=== PATIENT | male | born 1980 | race Two or more races ===

== ENCOUNTER 2023-02-10 17:17 | Emergency (ER) | payer OTHER ==
[2023-02-10 17:32] VITALS: BP 133/84
--- NOTE | 2023-02-10 17:58 | XRAY Report ---
PROCEDURE: Wrist 4 View LT INDICATIONS: Trauma TECHNIQUE: 4 views of the wrist were acquired. COMPARISON: Correlation is made with the accompanying elbow plain films, 02/10/2023 FINDINGS: Bones: No fractures or dislocations. No suspicious bony lesions. Scaphoid view: Suboptimally positioned, yet no fracture is seen. Soft tissues: No suspicious soft tissue calcifications. IMPRESSION: No displaced fractures are seen on these plain films. If there is snuffbox tenderness (or other clinical concern for a fracture not seen on these images) p lease consider a dedicated CT study or a short-term follow-up plain film series, following splinting. Reviewed by: Rob Orellana MD on 02/10/2023 4:57 PM [facility]IS Approved by: Rob Orellana MD on 02/10/2023 4:57 PM [facility]IS Station ID: [id number]
--- NOTE | 2023-02-10 17:59 | XRAY Report ---
PROCEDURE: Elbow 3 View LT INDICATIONS: Trauma TECHNIQUE: 3 views of the elbow were acquired. COMPARISON: Correlation is made with the accompanying wrist plain films, 02/10/2023 FINDINGS: Bones: No fractures or dislocations. No suspicious bony lesions. Soft tissues: No significant elbow joint effusion. No suspicious soft tissue calcifications. IMPRESSION: No displaced fracture is seen. No significant joint effusion. Reviewed by: oRb Orellana MD on 02/10/2023 4:57 PM [facility]IS Approved by: Rob Orellana MD on 02/10/2023 4:57 PM [email or web address] Station ID: [id number]
--- NOTE | 2023-02-10 18:41 | ED Physician Documentation ---
PD HPI UPPER EXT INJURY - Stated complaint Stated Complaint: LFT ARM SWELLING/PX - Chief complaint Chief Complaint: Trauma Ext - History obtained from History obtained from: Patient, Family - Additonal information Additional information: The patient comes to the emergency department chief complaint of left elbow and wrist pain after a fall. He states that he tripped over his other foot and was holding something in his left Hand, so could not free his arm quickly enough to catch himself. He ended up falling to the ground and striking both his left wrist and left elbow. He denies any other injuries. No left shoulder pain. No hip or spinal pain. The injury happened today. PD PAST MEDICAL HISTORY - Allergies Allergies/Adverse Reactions: Allergies Allergy/AdvReac Type Severity Reaction Status Date / Time Sulfa (Sulfonamide Allergy Unknown Verified 02/10/23 17:30 Antibiotics) PD ED PE NORMAL - Vitals Vital signs reviewed: Yes - General General: No acute distress, Well developed/nourished, Other (Alert and grossly oriented) - HEENT HEENT: Atraumatic, PERRL, EOMI, Moist mucous membranes - Neck Neck: Supple, no meningeal sign, No bony TTP - Cardiac Cardiac: Strong equal pulses - Respiratory Respiratory: No respiratory distress - Derm Derm: Normal color, Warm and dry, No rash - Extremities Extremities: No deformity, No edema, Other (Full range of motion left wrist. Moderately limited range of motion of left shoulder, secondary to pain. No left shoulder tenderness or deformity) - Neuro Neuro: Alert and oriented X 3 - Psych Psych: Normal mood, Normal affect Results - Vitals Vitals: Vital Signs - 24 hr 02/10/23 17:30 Temperature 36.5 C Heart Rate 77 Respiratory 16 Rate Blood Pressure 133/84 H O2 Saturation 96 Oxygen O2 Source Room air - Rads (name of study) Left wrist x-ray series Relevant Findings:: Final report received, See rad report (Negative) Left elbow x-ray series Relevant Findings:: Final report received, See rad report (Negative) PD Medical Decision Making - ED course Complexity details: reviewed results, re-evaluated patient, considered differential, d/w patient, d/w family ED course: The patient's x-ray series of the left wrist and elbow were unremarkable. We have discussed symptomatic management at home and the usual indications for return. Departure - Departure Disposition: 01 Home, Self Care Clinical Impression: Sprain of elbow, left Qualifiers: Encounter type: initial encounter Qualified Code(s): S53.402A - Unspecified sprain of left elbow, initial encounter Left wrist sprain Qualifiers: Encounter type: initial encounter Qualified Code(s): S63.502A - Unspecified sprain of left wrist, initial encounter Instructions: ED Sprain Elbow, ED Sprain Wrist Comments: Your x-rays look good. You may use ibuprofen and Tylenol to help with the pain and also may apply ice packs if needed. Please be sure you do some range of motion with both your wrist and elbow to keep them from stiffening up. You may follow-up with your doctor as needed.
== END 2023-02-10 18:45 | disposition home or self-care (01) ==
LOC: ED 17:17
DX: S53.402A Unspecified sprain of left elbow, initial encounter (principal); S63.502A Unspecified sprain of left wrist, initial encounter; W01.0XXA Fall on same level from slipping, tripping and stumbling without subsequent striking against object, initial encounter
CPT/HCPCS: 99283; 99284

== ENCOUNTER 2023-10-07 15:48 | Outpatient (CLI) | payer OTHER ==
[2023-10-07 18:42] LABS: BASOPHILS # (AUTO) 0.1 10^3/uL (0.0-0.1); BASOPHILS % (AUTO) 1.1 %; EOSINOPHILS # (AUTO) 0.4 10^3/uL (0.0-0.7); EOSINOPHILS % (AUTO) 7.5 %; HGB - HEMOGLOBIN 15.2 g/dL (14.0-18.0); LYMPHOCYTES # (AUTO) 1.5 10^3/uL (1.5-3.5); MEAN CORPUSCULAR HGB CONC 34.5 g/dL (32.0-36.0); MEAN PLATELET VOLUME 9.3 fL (7.4-11.4); MONOCYTES # (AUTO) 0.4 10^3/uL (0.0-1.0); MONOCYTES % (AUTO) 6.8 %; NEUTROPHILS # (AUTO) 3.2 10^3/uL (1.5-6.6); NEUTROPHILS % (AUTO) 57.4 %; PLT - PLATELET COUNT 275 10^3/uL (130-450); RED BLOOD COUNT 5.06 10^6/uL (4.70-6.10); RED CELL DISTRIBUTION WIDTH 11.9 % (12.0-15.0); WHITE BLOOD COUNT 5.6 x10^3/uL (4.8-10.8)
[2023-10-07 19:02] LABS: ALBUMIN 4.4 g/dL (3.2-5.5); ALBUMIN/GLOBULIN RATIO 1.8 (1.0-2.2); ALKALINE PHOSPHATASE 101 IU/L (42-121); ALT ALANINE AMINOTRANSFERASE 15 IU/L (10-60); AST ASPARTATE AMINOTRANSFERASE 12 IU/L (10-42); BILIRUBIN,TOTAL 0.9 mg/dL (0.2-1.0); BUN - BLOOD UREA NITROGEN 16 mg/dL (6-20); CALCIUM 9.6 mg/dL (8.5-10.3); CARBON DIOXIDE - CO2 30 mmol/L (21-32); CHLORIDE 104 mmol/L (101-111); CHOL/HDL RATIO 5.2 (<5.0); CHOLESTEROL 178 mg/dL; CREATININE 0.9 mg/dL (0.6-1.3); GFR - MDRD 93 (>89); GLUCOSE 91 mg/dL (74-104); HDL CHOLESTEROL 34 mg/dL; LDL CHOLESTEROL,CALCULATED 124 mg/dL; LDL/HDL RATIO 3.6 (<3.6); POTASSIUM 3.8 mmol/L (3.5-4.5); SODIUM 139 mmol/L (135-145); TOTAL PROTEIN 6.9 g/dL (6.4-8.9); TRIGLYCERIDES 99 mg/dL (48-352); VLDL CHOLESTEROL 20 mg/dL
[2023-10-07 19:11] LABS: THYROID STIMULATING HORMONE 5.05 uIU/mL (0.34-5.60)
== END 2023-10-07 15:49 | disposition home or self-care (01) ==
LOC: LAB.N 15:48
PROVIDERS: ATTEND Nurse Practitioner
DX: R53.83 Other fatigue (principal); Z13.220 Encounter for screening for lipoid disorders; F41.9 Anxiety disorder, unspecified; F32.A Depression, unspecified
CPT/HCPCS: 36415; 80053; 80061; 83721; 84443; 85025